=== PATIENT | male | born 1945 | race Caucasian/White ===

== ENCOUNTER 2018-07-27 06:14 | Day surgery (SDC) | payer OTHER ==
[~2018-07-27 06:14] MED LIST: ACETAMINOPHEN 325 MG TAB PO
[2018-07-27] MEDS ORDERED: PHENYLEPHRINE HCL 10 % OPHTH. SOL 5ML OD (07:00)
[2018-07-27] MEDS ORDERED: PROPARACAINE 0.5% OPHTH SOL 15ML OD (07:01)
[2018-07-27 07:09] LABS: BEDSIDE GLUCOSE 129 MG/DL (83-110)
[2018-07-27] MEDS ORDERED: MIDAZOLAM INJ 2 MG/2 ML VIAL (J2250) As Ordered (07:11)
[2018-07-27] MEDS ORDERED: fentaNYL 100 MCG/2 ML INJECTION (J3010) As Ordered (07:11)
[2018-07-27] MEDS: LIDOCAINE 3.5 % 1ML OPHTH TOPICAL GEL OU (07:22)
[2018-07-27] MEDS: PHENYLEPHRINE 2.5% OPHTH SOL 2ML OD (07:23)
[2018-07-27] MEDS: CYCLOPENTOLATE 2% OPHTH SOLN 2ML BTL OD (07:23)
[2018-07-27] MEDS: OFLOXACIN 0.3 % (OCUFLOX) OPTH SOL 5ML OD (07:23)
[2018-07-27] MEDS: TROPICAMIDE 1% OPHTH SOLN 2ML OD (07:23)
[2018-07-27] MEDS: BALANCED SALT IRRIGATION SOLUTION 500ML BAG (FOR OR EYE MACHINE) As Ordered (08:16)
[2018-07-27] MEDS: POVIDONE-IODINE 5% OPHTH PREP SOL 30ML As Ordered (08:16)
[2018-07-27] MEDS: LIDOCAINE 1% SDV 5 ML VIAL As Ordered (08:16)
[2018-07-27] MEDS: CEFUROXIME 1MG/0.1ML INTRACAMERAL INJ As Ordered (08:17)
[2018-07-27] MEDS: HEALON DUET PRO(HEALON 10MG/ML 0.55ML & HEALON ENDOCOAT 30MG/ML 0.85ML) As Ordered (08:17)
[2018-07-27] MEDS ORDERED: KETOROLAC 0.5% OPHTH SOLN OD (08:45)
[2018-07-27] MEDS ORDERED: TRIMETHOBENZAMIDE 300 MG CAP PO (08:45)
[2018-07-27] MEDS: AcetaZOLAMIDE 500 MG ER CAP PO (09:00)
== END 2018-07-27 09:12 | disposition home or self-care (01) ==
LOC: M SDC 06:14
DX: H25.11 Age-related nuclear cataract, right eye (principal); I10 Essential (primary) hypertension; E11.9 Type 2 diabetes mellitus without complications; E78.5 Hyperlipidemia, unspecified; Z98.42 Cataract extraction status, left eye; Z79.899 Other long term (current) drug therapy; Z79.84 Long term (current) use of oral hypoglycemic drugs
CPT/HCPCS: 66984